=== PATIENT | male | born 2000 | race Caucasian/White ===

== ENCOUNTER 2022-10-14 23:26 | Emergency (ER) | payer BC ==
[~2022-10-14] VITALS: Ht 193 cm; Wt 93.4 kg
[2022-10-14 23:27] VITALS: BP 135/67; TEMP 97.8; O2SAT 100
== END 2022-10-15 01:37 | disposition home or self-care (01) ==
LOC: M ED 23:26
DX: S61.211A Laceration without foreign body of left index finger without damage to nail, initial encounter (principal); W26.0XXA Contact with knife, initial encounter